=== PATIENT | male | born 1955 | race Caucasian/White ===

== ENCOUNTER → 2018-10-17 16:10 | Outpatient (CLI) | payer MEDICAID, SELFPAY ==
[2016-09-15 09:30] VITALS: BMI 25.7
--- NOTE | 2018-10-17 | FLU_PTH ---
PATIENT: KENDRA LUCIANO LOC: [facility] U#:[id number] AGE/SX: 69/M ROOM: RE10/17/[address]: Dr. Todd Recinos MD : 1955 BED: DIS: SPEC #: [id number] RECD: 10/17/18 15:43 STATUS: RICHARD MALLIKA #: [id number] DIANN: 10/17/18 00:[address]: Todd Recinos DEPT: CYTOLOGY RECD BY: Toñito Vieyra ENTERED: 10/18/18 08:22 SP TYPE: Fluid OTHR DR: Dr. Manuel Lopez, DO Tissues: Neck, NOS Procedures: Special Stain Group II Surgery Specimen Level IV Cytospin Fluid HEADER OPERATION: Not noted PRE-OP DIAGNOSIS: Left adrenal mass TISSUE SUBMITTED: Left neck mass fluid for cytology DIAGNOSIS CYTOLOGY Left neck mass fluid for cytology (cytospin and cell block): Consistent with metastatic non-small cell carcinoma, favor adenocarcinoma See comment. SJ:becky 10/21/18 COMMENT Immunohistochemistry ([id number]) supports the above diagnosis and it is non-contributory for primary site of origin. Correlation with clinical, radiologic findings and appropriate follow up are necessary. Case has been reviewed in consultation with Dr. Samuels who concurs with the above diagnosis. IDC:AM CYTOLOGY STUDY Slides are reviewed. CYTOLOGY GROSS Received is 40 ml of clear red fluid labeled with the patient's name and and designated per the requisition as left neck mass. Submitted for cytology preparation including cell block. / becky 10/18/18 TC:0 CPT: 99281, 83342
--- NOTE | 2018-10-17 | IMM_PTH ---
PATIENT: KENDRA LUCIANO LOC: [facility] U#:[id number] AGE/SX: 69/M ROOM: RE10/17/[address]: Dr. Todd Recinos MD : 1955 BED: DIS: SPEC #: [id number] RECD: 10/21/18 11:47 STATUS: RICHARD REQ #: [id number] DIANN: 10/17/18 00:[address]: Todd Recinos DEPT: IMMUNOHISTOCHEMISTRY RECD BY: Michelle Small ENTERED: 10/21/18 11:50 SP TYPE: IMMUNO OTHR DR: Dr. Manuel Lopez DO Tissues: Neck, NOS Procedures: Synapto (add) RCC (add) NAPSIN A (add) CD56 (add) CHROMO (add) CK20 (add) CK5-6 (add) CK7 (add) CK8 (add) HEP PAR (add) TTF1 (add) Vimentin (add) Pankeratin (initial) P40 (add) PSAP (add) PHYSICIAN & [address] [address] SPECIMEN INFORMATION: Tissue Source: Left neck mass Clinical Info: Left adrenal mass Specimen Number: [id number] CPT code: 32318, 24038 x14 METHODOLOGY: Deparaffinized sections of prefer/formalin-fixed tissue or PAP/DQ stained slides are incubated with monoclonal/polyclonal antibodies/oligonucleotide probes. Localization is made via biotin free immunoperoxidase method. Appropriate controls are performed and reacted as expected. Results on target cell population are indicated in the following table: RESULTS: ANTIBODY / CLONE RESULT AE1-3 (AE1/AE3/PCK26) positive CK7 (OV-TL12/30) positive CK8 (75tkxvJ41) positive CK20 (KS20.8) negative Vimentin (V9) negative CD56 (123C3.D5) negative Chromo (LK2H10) positive, focal Synapto (polyclonal) negative TTF-1 (8G7G3/1) negative Napsin A (Rabbit Polyclonal) negative HepPar (OCh1E5) negative RCC (PN-15) negative PSAP (PASE/4LJ) negative CK5-6 (D5 & 1684) negative P40 (BC28) negative These tests were developed and their performance characteristics determined by [facility]. They may not have been cleared or approved by the U.S. Food and Drug Administration. The FDA has determined that such clearance or approval is not necessary. INTERPRETATION: Left neck mass: Consistent with metastatic non-small cell carcinoma, favor adenocarcinoma. SJ:becky 10/22/18 Comment: IHC profile is noncontributory for primary site of origin. Clinical correlation is necessary. Case has been reviewed in consultation with Dr. Samuels who concurs with the above diagnosis. IDC:AM
== END ==
PROVIDERS: Family Provider Family Medicine; PCP Family Medicine; Referring Provider Otolaryngology; Visit Provider Otolaryngology
DX: R22.1 Localized swelling, mass and lump, neck (principal)
CPT/HCPCS: 88108; 88305; 88313; 88341; 88342

== ENCOUNTER → 2018-11-14 07:47 | Outpatient (CLI) | payer MEDICAID, SELFPAY ==
[2018-10-29 13:46] VITALS: BMI 22.4
[2018-11-13 09:54] VITALS: BMI 21.2
--- NOTE | 2018-11-14 08:08 | MRI_ITS ---
STUDY: MRI CERVICAL SPINE WITH AND WITHOUT CONTRAST REASON FOR EXAM: Male, 63 years old. Metastatic lung cancer, pain, history surgery and left arm, neck pain TECHNIQUE: Standardized fat and water weighted pulse sequences were obtained in the sagittal and axial following administration of IV Dotarem 10. COMPARISON: None FINDINGS: Normal foramen magnum and brainstem-cervical cord junction. Normal craniovertebral junction. Normal anterior atlantoaxial articulation. Normal odontoid process. Normal cervical lordosis. Normal vertebral bodies and posterior osseous elements. C2-3: Normal endplates. Normal disc height, signal and morphology. Normal central canal and intervertebral neural foramina. C3-4: A mildly bulging disc is noted this level with no evidence of disc herniation or central spinal stenosis. The neural foramina are widely patent. There is increased signal seen involving the C4 thoracic vertebral body probably due to reactive changes. C4-5: At C4-5 level there is a diffusely bulging disc causing mild to moderate spinal stenosis. There is some mild narrowing of the left C4-5 neural foramina. The right C4-5 neural foramen is widely patent and appears to be normal. C5-6: The patient is an anterior cervical fusion at this level and there is very minimal narrowing of the neural foramina at this level with no cord compression seen. C6-7: The patient continue to show fusion at this level and the spinal canal at this level appears to be normal. The right neural foramina appears to be normal however at the left neural foramina there appears to be some invasion of the neural foramina by a tumor which was subsequently discussed. C7-T1: The intervertebral disc at this level appears to be normal and no central spinal stenosis is identified. The right neural foramen appears to be normal. There is tumor invasion into the left neural foramina. Normal cervical cord. No evidence for Chiari I malformation is identified. There is a malignant mass lesion seen involving the left lower cervical soft tissues extending from level of the left side of C6 through the left lung apex. This malignant mass lesion measures about 5.32 x 5 point to 3 cm in maximal dimension and it abuts the superior pleural surface of the left lung and in also involves the roots and trunks of the lower brachial plexus on the left. MRI/Spine Cervical W/WO Contrast IMPRESSION: 1. Status post anterior cervical fusion extending from level of C5-C7, with a diffusely bulging disc at the C4-5 intervertebral disc space level causing mild to moderate central spinal stenosis. 2. A malignant soft tissue mass lesion is noted adjacent to the left side of the lower cervical spine extending into the left C6-7 and C7-T1 neural foramina and involving the lower left brachial plexus, as described above.. Electronically Signed: Yony Guidry, at 11:43 EDT Tel , Service support ,
--- NOTE | 2018-11-14 08:08 | MRI_ITS ---
STUDY: MRI THORACIC SPINE WITH AND WITHOUT CONTRAST REASON FOR EXAM: Male, 63 years old. Malignant mass lesion along the inferior left cervical spine TECHNIQUE: IV Dotarem 10 was administered for the contrast portion of the examination. Soft tissue tumor mass noted in the left neck COMPARISON: MRI of the cervical spine obtained earlier on 11/14/2018. FINDINGS: Normal kyphosis of the thoracic spine. There is no substantial scoliosis. T1-2, T2-3, T3-4, T4-5, T5-6, T6-7, T7-8,, T9-10, T10-11, T11-12: Normal endplates. Normal disc hydration, heights and morphology of the corresponding intervertebral discs. Normal central canal and intervertebral neural foramina at the corresponding levels. Annual foramina are all imaged levels are normal. At the T8-T9 level there is a small focal central disc protrusion which is causing some compression of the anterior thoracic subarachnoid space with no effacement of the thoracic spinal cord or significant central spinal stenosis. A mildly bulging disc is also seen at the T11-12 level. Again no central disc herniation worse spinal stenosis is seen at the T11-12 level. Normal visualized thoracic cord. Normal conus medullaris that terminates at the L1. There is again noted a malignant soft tissue mass lesion on the left side of the cervical spine with extension into the left C7-T1 neural foramina but without current cord or cervical thoracic spinal canal compromise. This is probably compressing the exiting left C8 nerve root. Atelectasis and/or pneumonic consolidation are noted in the left lower lobe.. There is no enhancing abnormality. MRI/Spine Thoracic W/WO Contrast IMPRESSION: 1. A malignant mass lesion is again noted in the left side of the lower cervical spine with extension into the left C7-T1 neural foramina compressing the exiting left C8 nerve root as described above. 2. At the T8-9 level there is a small focal central disc protrusion which is causing minimal compression of the anterior thoracic subarachnoid space without cord compression. 3. A mild diffusely bulging disc is noted at the T11-12 level with no evidence of disc herniation or spinal stenosis. 4. Atelectasis and/or pneumonic infiltrate left lung base. Electronically Signed: Yony Guidry, at 15:41 EDT Tel , Service support ,
== END ==
PROVIDERS: Family Provider Family Medicine; PCP Family Medicine; Referring Provider Internal Medicine Hematology & Oncology; Visit Provider Internal Medicine Hematology & Oncology
DX: C34.90 Malignant neoplasm of unspecified part of unspecified bronchus or lung (principal)
CPT/HCPCS: 72156; 72157; A9575

== ENCOUNTER 2018-11-18 09:20 | Day surgery (SDC) | payer MEDICAID, SELFPAY ==
[2018-11-13 09:54] VITALS: BMI 21.2
--- NOTE | 2018-11-13 12:23 | HP.PCM_ITS ---
Problem List (1) Encounter for adjustment and management of vascular access device Status: Acute (2) Metastatic cancer to axillary lymph nodes Status: Acute History and Physical Date of Admission: 11/13/18 Intake Vital Signs 11/13/18 Body Mass Index (BMI) 21.2 11/13/18 Height 5 ft 3 in 11/13/18 Weight: 120 lb 11/13/18 Body Mass Index (BMI) 21.2 11/13/18 Blood Pressure 95/62 11/13/18 Blood Pressure Location Rt brachial 11/13/18 Blood Pressure Position Sitting 11/13/18 Respiratory Rate 18 11/13/18 Pulse Rate 86 11/13/18 Pulse Source Monitor 11/13/18 Temperature 98.1 F 11/13/18 Temperature Source Oral 11/13/18 Pulse Ox 96 11/13/18 Oxygen Delivery Method room air Intake Visit Reasons: Port Placement Chief Complaint: Metastatic cancer Home Health Travel Ot Required: No Is patient in pain?: No Allergies No Known Allergies Allergy (Verified 11/13/18 09:54) Medications Amlodipine Besylate [Norvasc] 5 mg PO DAILY 09/14/16 [History Confirmed 11/13/18] Oxycodone HCl [Roxicodone] 15 mg PO Q4H PRN 09/14/16 [History Confirmed 11/13/18] traZODone [Desyrel] 100 mg PO DAILY 09/14/16 [History Confirmed 11/13/18] Zolpidem Tartrate [Ambien] 10 mg PO DAILY 10/29/18 [History Confirmed 11/13/18] PFSH Medical History Cancer (Acute) Sleep apnea (Acute) Speech delay (Acute) Hypertension (Chronic) Surgical History History of carpal tunnel surgery (Acute) History of hernia repair (Acute) History of orthopedic surgery (Acute) History of orthopedic surgery (Acute) History of skin graft (Acute) Family History Other No pertinent family history Social History (Updated 11/13/18 @ 12:22 by Mg Meza MD) Smoking Status: Current every day smoker HPI HPI HPI: KENDRA LUCIANO, is a 63 M who presents to the office today for HPI HPI HPI: KENDRA LUCIANO, is a 63 M who presents to the office today for port placement. The patient is being treated for Pancoast tumor of the left lung. Patient also has likely metastatic disease. It was requested that more tissue be obtained to guide oncologic work-up. PET scan revealed enlarged, Avid lymph nodes in the left axilla. ROS General General: Yes weight change and fatigue; no appetite, colon cancer, breast cancer or weakness HEENT HEENT: Yes swollen glands; no difficulty swallowing, eye injury, eye surgery or hoarseness Endo Endocrine: No thyroid disease, diabetes mellitus, thyroid cancer, Hair loss, heat intolerance or cold intolerance Skin Skin: No rash or changing moles Breast Breast: No left breast lump, right breast lump, breast pain, abnormal mammogram, abnormal US or breast enlargement Musc Musculoskeletal: Yes back problems and arthritis; no rheumatoid arthritis, gout or joint pain Cardio Cardiovascular: Yes high blood pressure; no murmur, pacemaker, heart disease, atrial fibrillation, heart attack, heart stent, palpitations, shortness of breat with exertion or chest pain Psych Psychiatric: No depression, anxiety or hearing voices Resp Respiratory: No shortness of breath, Yes sleep apnea, No cough, No COPD, No asthma, No emphysema, No wheezing Gastro Gastrointestinal: Yes abdominal pain, No nausea or vomiting, No diarrhea, No constipation, No blood in stool, No acid reflux, No hemorrhoids, No ulcers, No gallbladder problem, No black,tarry stools Jonnie Hematologic: No blood thinners, No blood disorders, No bleeding, No anemia, No blood clots Neuro Neurologic: No system reviewed and no additional complaints, except as docu, No as per HPI, No abnormal walking, No abnormal hearing, No abnormal movements, No abnormal speech, No behavioral changes, No burning sensations, No confusion, No seizure-like activity, No unsteadiness, No dizziness, No localized weakness, No frequent falls, No headache(s), No lack of coordination, No loss of vision, No memory loss, Yes numbness, No other visual disturbances, No radiating pain, No restless legs, No sensory deficit, No fainting, Yes tingling, No tremor(s), No weakness, No other Exam Const General: cooperative Nutritional Appearance: cachectic, malnourished Orientation: alert, oriented x3 Chest Breast Palpation: Yes axillary lymphadenopathy (Left) Resp Effort & Inspection: normal respiratory effort Auscultation: clear to auscultation bilaterally Cardio Rate: regular rate Rhythm: regular rhythm Heart Sounds: no murmurs GI Inspection: non-distended Palpation: soft, nontender Assessment & Plan Problems 1. Pancoast tumor of left lung C34.12 2. Metastatic cancer to axillary lymph nodes C77.3 3. Encounter for insertion of venous access port Z45.2 Plan The patient has Pancoast tumor of the left lung with metastatic disease. More tissue needs to be obtained to guide treatment. I discussed left axillary lymph node biopsy with the patient. The PET scan did show that these lit up and are enlarged. He has palpable lymph nodes on exam. I discussed risks of the left axillary lymph node biopsy. I discussed the risks of bleeding, infection, seroma, nerve injury. Patient understands risks. I will also be placing a chest port on the right side at the time using IJ on the right side. I discussed right chest port placement in detail with the daisy ent including the risks of bleeding, infection, pneumothorax, DVT, line infection. Patient agrees to proceed. Mg Meza MD Pager: [facility] [address] [place] [address], [address] [place] [address] Office:
[2018-11-14 10:40] VITALS: BMI 20.6
--- NOTE | 2018-11-18 | IMM_PTH ---
PATIENT: KENDRA LUCIANO [place] [facility] [id number] AGE/SX: 63/M ROOM: RE11/18/[address]: Dr. Mg Meza MD : 1955 BED: DIS: 11/18/2018 SPEC #: [id number] RECD: 11/19/18 12:38 STATUS: RICHARD REQ #: [id number] DIANN: 11/18/18 00:[address]: Mg Meza DEPT: IMMUNOHISTOCHEMISTRY RECD BY: Michelle Small ENTERED: 11/19/18 12:40 SP TYPE: IMMUNO OTHR DR: Dr. Manuel Lopez, DO Tissues: Axillary lymph node, NOS Procedures: Synapto (add) RCC (add) MSH2 (add) MLH-1 (add) MSH6 (add) Anti-PMS2 (add) NAPSIN A (add) César Ret (add) CD56 (add) CHROMO (add) CK20 (add) CK5-6 (add) CK7 (add) CK8 (add) HEP PAR (add) KI-67 (add) P53 (add) TTF1 (add) Vimentin (add) Pankeratin (initial) MELAN-A (add) P40 (add) PSAP (add) S-100 (add) PHYSICIAN & [place] [address] SPECIMEN INFORMATION: Tissue Source: Left axillary lymph node biopsy Clinical Info: Metastatic cancer Specimen Number: [id number] #2 CPT code: 52623, 48949 x23 METHODOLOGY: Deparaffinized sections of prefer/formalin-fixed tissue or PAP/DQ stained slides are incubated with monoclonal/polyclonal antibodies/oligonucleotide probes. Localization is made via biotin free immunoperoxidase method. Appropriate controls are performed and reacted as expected. Results on target cell population are indicated in the following table: RESULTS: ANTIBODY / CLONE RESULT AE1-3 (AE1/AE3/PCK26) positive CK7 (OV-TL12/30) positive CK8 (15xjbqJ37) positive CK20 (KS20.8) negative Vimentin (V9) negative Melan A (A103) negative S-100 (4C4.9) negative CD56 (123C3.D5) negative Chromo (LK2H10) positive, focal Synapto (polyclonal) negative (high background) TTF-1 (8G7G3/1) negative (high background) Napsin A (Rabbit Polyclonal) negative (high background) HepPar (OCh1E5) negative RCC (PN-15) negative PSAP (PASE/4LJ) negative CALRET (polyclonal) positive CK5-6 (D5 & 1684) positive, a few cells P40 (BC28) negative These tests were developed and their performance characteristics determined by [facility]. They may not have been cleared or approved by the U.S. Food and Drug Administration. The FDA has determined that such clearance or approval is not necessary. The above immunohistochemical/dualISH markers are ordered and reviewed by the Pathologist. INTERPRETATION: Left axillary lymph node, biopsy: Consistent with metastatic carcinoma. See comment. SJ:rg 11/20/18 Comment: IHC profile and morphology is compatible with adrenocortical primary. Case has been reviewed in consultation with Dr. Samuels who concurs with the above diagnosis. IDC:AM ADDENDUM ADDENDUM ADDENDUM ADDENDUM ADDENDUM ADDENDUM ADDENDUM ADDENDUM ADDENDUM ADDENDUM ADDENDUM ADDENDUM ADDENDUM ADDENDUM 12/11/2018 10:12 ADDENDUM 12/11/2018 10:12 ADDENDUM 12/11/2018 10:12 ADDENDUM 12/11/2018 10:12 ADDENDUM 12/11/2018 10:12 RESULTS: ANTIBODY / CLONE RESULT Ki-67 (30-9) positive, low P53 (DO-7) negative MLH-1 (M1) positive MSH2 (25D12) positive MSH6 (44) positive PMS2 ([id number]) positive Result of Microsatellite Instability Study: Negative (no loss of mismatch protein; no microsatellite instability detected). ARIANNE:becky 12/11/18
[2018-11-18 10:04] VITALS: BP 118/82; PULSE 73; RESP 16; TEMP 37.2; O2SAT 94; BMI 20.6
[2018-11-18] MEDS: Lactated Ringers 1,000 ML 100 ML IV (10:47)
[2018-11-18] MEDS: Cefazolin 2 GM in 0.9% Normal Saline 100 ML IV (11:57)
--- NOTE | 2018-11-18 12:00 | LYMN_PTH ---
PATIENT: KENDRA LUCIANO [place] [facility] [place][id number] AGE/SX: 63/M ROOM: RE11/18/[address]: Dr. Mg Meza MD : 1955 BED: DIS: 11/18/2018 SPEC #: [id number] RECD: 11/18/18 13:03 STATUS: RICHARD MALLIKA #: [id number] DIANN: 11/18/18 12:[address]: Mg Meza DEPT: SURGICAL PATHOLOGY RECD BY: Toñito Vieyra ENTERED: 11/18/18 13:35 SP TYPE: LYMPH NODE OTHR DR: Dr. Manuel Lopez, Tissues: LYMPH NODE BIOPSY Procedures: Special Stain Group II Surgery Specimen Level V Imprint (control) HEADER OPERATION: Right insertion vascular port; left axillary node biopsy PRE-OP DIAGNOSIS: Metastatic cancer to axillary lymph nodes, Pancoast tumor left lung TISSUE SUBMITTED: Axillary lymph nodes MICROSCOPIC DIAGNOSIS Axillary lymph nodes, biopsy: Two out of two lymph nodes, positive for metastatic non-small cell carcinoma. See comment. SJ:rg 11/19/18 COMMENT The specimen is evaluated at the time of touch imprints by Dr. Mello. Immediate Evaluation = Malignant cells present derived from non-small cell carcinoma. Immunohistochemistry ([id number]) supports the above diagnosis. IHC and morphology favors adrenocortical primary. Molecular studies on the tumor can be performed if clinically indicated. Please notify the laboratory if they are needed. Please make reference to previous specimen ([id number]) left neck mass for cytology with diagnosis of consistent with metastatic non-small cell carcinoma, favor adenocarcinoma. Correlation with clinical, radiologic studies and appropriate follow up are necessary. This case is discussed with Dr. Aguilar on 11/20/18. Case has been reviewed in consultation with Dr. Samuels who concurs with the above diagnosis. IDC:AM MICROSCOPIC DESCRIPTION Slides are reviewed. GROSS DESCRIPTION Received fresh in saline labeled with the patient's name is a specimen designated left axillary lymph node. The specimen consists of two ovoid pieces of soft tissue consistent with lymph node measuring 2.5 x 2 x 1.5 cm and 2 x 1 x 1 cm. Both pieces are serially sectioned and reveal nesbitt, solid cut surfaces. Four touch imprints are prepared, two stained with Diff-Quik and two stained with H & E stain. A section is saved for possible flow cytometry study. The entire specimen is submitted in three cassettes as follows: 1 - smaller lymph node, 2 & 3 - larger lymph node. / ARIANNE:becky 11/18/18 TC:0 CPT: 29589, 96458
[2018-11-18] MEDS: Bupiv/Epi 0.5% Mpf 30 ML Vial (13:03)
--- NOTE | 2018-11-18 13:06 | PCM.OPRPT ---
Problem List (1) Encounter for adjustment and management of vascular access device Status: Acute (2) Metastatic cancer to axillary lymph nodes Status: Acute Report of Operation Date of Procedure: 11/18/18 Pre-Operative Diagnosis: 1. Need for vascular access for chemotherapy. 2. Malignant neoplasm of left lung. 3. Need for further tissue for diagnosis. Post-Operative Diagnosis: Same Surgery/Procedure Performed:: 1. Ultrasound and fluoroscopy guided right chest port placement utilizing right IJ. 2. Left axillary lymph node excisional biopsy Specimen's removed: Left axillary lymph node Description of Procedure: After obtaining informed consent patient was brought back to the operating room MAC anesthesia was induced and the right chest and neck were prepped in normal sterile fashion. Ultrasound was used to evaluate both IJs and the right IJ was selected. Next, using a needle, the right IJ was accessed and a guidewire was passed on into the superior vena cava under fluoroscopy guidance. A small incision was made over the puncture site and the dilator introducer was placed over the guidewire. Next this was capped and the pocket was made for the port. 1% lidocaine with epinephrine was injected in the proposed port site. An incision was made with scalpel. Electrocautery was used to make a pocket under the skin and subcutaneous tissue. Hemostasis was obtained. Next, the catheter was tunneled up to the neck incision site and placed through the introducer. The peel-away introducer was removed and the position of the catheter was confirmed on fluoroscopy. Next, the catheter was trimmed and attached to the port with the locking device. Interrupted 2-0 Vicryl sutures were used to anchor the port to the chest wall and then the port was placed inside the pocket. The pocket was then flushed with saline and the port irrigated with saline. There was good blood return and the port flushed easily. The port was then accessed through the skin. Next, heparin was injected into the port. The skin was closed with subcutaneous interrupted 3-0 Vicryl sutures. A single 3-0 Vicryl sutures placed under the skin at the neck incision site. Steri-Strips were placed as well as op sites. Next attention was paid to the left axillary region. This area was prepped and draped in usual sterile fashion. An area of palpable lymphadenopathy was selected and the skin was anesthetized and an incision was made with a scalpel. Electrocautery was used to gain hemostasis. Next the axillary fascia was incised using ultra cautery. The enlarged lymph node was identified and using harmonic scalpel dissected free. There was good hemostasis. The cavity was irrigated and the deep tissue was closed with interrupted 3-0 Vicryl sutures. The skin was closed with interrupted 3-0 Vicryl sutures as well as a running 4-0 Monocryl suture. Glue was then applied. Patient tolerated procedure well, was taken to PACU in stable condition. Chest x-ray will be obtained. Grafts/Implants Used: 8 [employer] - Admit VTE Documentation VTE Mechan Device Prophylaxis: SCD's
--- NOTE | 2018-11-18 13:09 | PCM.DC.POR ---
Discharge Diet: No Restrictions - Pain medication may cause nausea. You should typically eat light foods as you take your pain medication. Discharge Activity: Return to Normal Activity, May Shower - with your bandage in place in 1-2 days after surgery. DO NOT SHOWER WHEN YOUR PORT IS ACCESSED. Lifting Restrictions: 10 lbs for 1 week Call your doctor if your incision/area has: Continuous Slow Oozing, Sudden Increased Bleeding, Increased Pain/ Swelling, Increased Redness Call your doctor if you observe: Fever of 101 or Higher Remove Dressing in (days):: 3 - When you remove the bandage, leave the steri-strips intact until they fall off. Allergies/Adverse Reactions: Allergies No Known Allergies Allergy (Verified 11/14/18 10:39) Medications to take at Discharge Amlodipine Besylate [Norvasc] 5 mg PO DAILY 09/14/16 Oxycodone HCl [Roxicodone] 15 mg PO Q4H PRN 09/14/16 Temazepam [Restoril] 15 mg PO QHS PRN PRN 11/13/18 Oxycodone HCl/Acetaminophen [Percocet 5/325] 1 - 2 tablet PO Q4H PRN PRN 3 Days #15 tablet 11/18/18 The following prescriptions were given: Oxycodone HCl/Acetaminophen [Percocet 5/325] 1 - 2 tablet PO Q4H PRN PRN 3 Days #15 tablet PRN Reason: Pain Transmission Status: Sent to [facility] Primary Care Physician: Manuel Lopez DO [Primary Care Provider] - Test Results: Test results from this visit will be discussed in further detail at your follow-up appointment, if applicable. Please Follow Up With: gM Meza MD When: Please call to schedule 2 week follow up appointment. [phone]
[2018-11-18 13:15] VITALS: BP 118/82; BP 142/90; PULSE 77; RESP 16; TEMP 36.7; O2SAT 91
[2018-11-18 13:30] VITALS: BP 118/82; BP 151/79; PULSE 72; RESP 16; O2SAT 94
[2018-11-18 13:45] VITALS: BP 118/82; BP 147/80; PULSE 70; RESP 16; O2SAT 94
--- NOTE | 2018-11-18 14:03 | RAD_ITS ---
STUDY: X-RAY CHEST REASON FOR EXAM: Male, 63 years old. Port placement. TECHNIQUE: Single AP portable view of the chest. COMPARISON: None. FINDINGS: A right-sided vimal catheter has been placed. The tip is at the junction of the superior vena cava and right atrium. Elevation of the right hemidiaphragm with increased markings at the left lung base as well as blunting of the left costophrenic angle. This is suggestive of left basilar atelectasis and/or infiltrate. Normal size heart. Normal mediastinum and mara. Normal visualized pulmonary arteries. Normal visualized aortic arch and descending thoracic aorta. There are degenerative changes of the visualized thoracic spine. There is degenerative osteoarthritis of the bilateral shoulders. Prior fusion of the lower cervical spine. There is no demonstrated abnormality of the visualized soft tissue structures of the upper abdomen. RAD/CXR for Line Placement IMPRESSION: The tip of the right-sided Port-A-Cath is at the junction of the superior vena cava and right atrium. Elevation of the left hemidiaphragm with left basilar atelectasis and/or infiltrate with blunting of left costophrenic angle. Electronically Signed: Santiago Arellano, at 15:01 EDT , Service support ,
[2018-11-18 14:04] VITALS: BP 118/82; BP 158/87; PULSE 72; RESP 16; TEMP 36.7; O2SAT 94
[2018-11-18 15:10] VITALS: BP 118/82
== END 2018-11-18 15:12 | disposition home or self-care (01) ==
LOC: SDC 09:21 → AC 09:22
PROVIDERS: Family Provider Family Medicine; PCP Family Medicine; Referring Provider Surgery; Visit Provider Surgery
PROC: (CPT 36561; principal; 2018-11-18 11:45)
DX: Z45.2 Encounter for adjustment and management of vascular access device (principal); C34.12 Malignant neoplasm of upper lobe, left bronchus or lung; C77.3 Secondary and unspecified malignant neoplasm of axilla and upper limb lymph nodes; I10 Essential (primary) hypertension; F17.200 Nicotine dependence, unspecified, uncomplicated
CPT/HCPCS: 01610; 36561; 38525; 71045; 77001; 88305; 88307; 88313; 88341; 88342; J7120; C1788; J2405

== ENCOUNTER 2018-11-19 14:08 | Outpatient (RCR) | payer MEDICAID, SELFPAY ==
[2018-11-12 13:09] VITALS: BMI 21.2
[2018-11-14 10:40] VITALS: BMI 20.6
[2018-11-19 10:31] VITALS: BMI 20.9
== END 2018-12-05 23:59 ==
LOC: NS 14:08
PROVIDERS: Family Provider Family Medicine; PCP Family Medicine; Visit Provider Internal Medicine Hematology & Oncology
DX: Z71.3 Dietary counseling and surveillance (principal); R63.4 Abnormal weight loss; C80.1 Malignant (primary) neoplasm, unspecified; C77.0 Secondary and unspecified malignant neoplasm of lymph nodes of head, face and neck
CPT/HCPCS: 97802; 97803

== ENCOUNTER 2018-12-25 08:00 | Outpatient (RCR) | payer MEDICAID, SELFPAY ==
[2018-11-14 10:40] VITALS: BMI 20.6
[2018-11-20 11:58] VITALS: BMI 20.7
== END 2019-01-04 23:59 ==
LOC: NS 08:00
PROVIDERS: Family Provider Family Medicine; PCP Family Medicine; Visit Provider Internal Medicine Hematology & Oncology
DX: Z71.3 Dietary counseling and surveillance (principal); C80.1 Malignant (primary) neoplasm, unspecified; C77.0 Secondary and unspecified malignant neoplasm of lymph nodes of head, face and neck; R63.4 Abnormal weight loss
CPT/HCPCS: 97803